=== PATIENT | female | born 1940 | race Caucasian/White ===

== ENCOUNTER 2021-08-26 07:32 | Emergency (ER) | payer MEDICARE, SELFPAY ==
--- NOTE | ~2021-08-26 | CT_ITS ---
EXAMINATION: CT abdomen pelvis w con CLINICAL INFORMATION: Reason for Exam Suprapubic abdominal pain, recurrent UTI COMPARISON: Most recent prior CT from April 2019 TECHNIQUE: Multidetector volumetric imaging was performed from the superior aspect of the liver through the pubic symphysis 85 mL Omnipaque 350 injected Sagittal and coronal reformatted images were obtained on the technologist's workstation. This CT examination was performed using dose optimization techniques as appropriate, variously including the following: *Automated exposure control *Adjustment of mA and/or kV according to patient size (this includes techniques or standardized protocols for targeted exams where dose is matched to indication/reason for exam; i.e. extremities or head) *Use of iterative reconstruction technique DLP: 1710 mGy-cm FINDINGS: LOWER THORAX: Included lung bases are clear. HEPATOBILIARY: No focal hepatic lesions. No biliary ductal dilatation. GALLBLADDER: There are multiple gallstones. SPLEEN: Spleen is normal in size. PANCREAS: Pancreas is a small atrophic. STOMACH AND GASTROINTESTINAL TRACT: Stomach is grossly unremarkable. There are scattered sigmoid diverticula, no CT evidence of diverticulitis. No CT evidence of appendicitis. ADRENALS: No adrenal nodules. KIDNEYS/URETERS: No hydronephrosis, stones or solid mass lesions. URINARY BLADDER: There is circumferential wall thickening of the urinary bladder combined with mild surrounding fat stranding although nonspecific this is concerning for cystitis. PELVIC VISCERA: Unremarkable PERITONEUM: No free air or fluid. LYMPH NODES: No lymphadenopathy. VASCULAR:Abdominal aorta normal in size, no aneurysm found. BONES, ABDOMINAL WALL AND SOFT TISSUES: There are degenerative changes of the hip joints, symphysis pubis and lumbar spine. No fracture. No destructive bone lesion. CT/CT abdomen pelvis w con IMPRESSION: 1. Circumferential wall thickening of the urinary bladder combined with mild surrounding fat stranding raise concern for cystitis. 2. Cholelithiasis. 3. Few scattered diverticula of the sigmoid colon without evidence of diverticulitis.
[2021-08-26 08:38] VITALS: BP 171/58; PULSE 84; RESP 16; TEMP 36.9; O2SAT 99; BMI 24.7
[2021-08-26 08:39] LABS: Appearance Urine CLOUDY; Color Urine STRAW; Glucose Urine UA 500 MG/DL (NEG); Leukocyte Esterase Urine 2+ (NEG); Nitrite Urine NEG (NEG); UACC Culture Trigger YES; Urine Blood 2+ (NEG); Urine Ketones 15 MG/DL (NEG); Urine Protein NEG (NEG-TRACE)
--- NOTE | 2021-08-26 08:47 | ED_ITS ---
HPI - Female Genitourinary General Chief complaint: Urogenital-Female Stated complaint: URINARY PROBLEM Time Seen by Provider: 08/26/21 08:31 Source: patient Mode of arrival: ambulatory Limitations: no limitations History of Present Illness HPI Narrative: 81 y/o female pmhx significant for recurrent UTIs, HTN and DM presents to the emergency department with urinary frequency, urgency, suprapubic pain and palpitations X2 weeks. She states that she has been getting recurring UTIs, her last UTI was about 2 weeks ago, she was recently taking ciprofloxacin for it. She states that the symptoms resolved, but started up a few days after stopping antibiotics. She reports sevree She also states that she has been wyatt ving palpitations, and chest heaviness for the past few weeks. She also notices that her blood pressures have been higher than usual, 190/80 in the morning. She denies fevers, chills, SOB, N/V/D, recent sick contacts, back pain, weakness, fatigue. MD elicited complaint: dysuria and UTI Pertinent past history: recurrent UTIs Onset (ago): week(s) (2) Severity: severe Quality of pain: other (suprapubic tenderness) Consistency: constant Vaginal discharge: none Vaginal bleeding: none Urinary symptoms: Dysuria, Urgency, Frequency and Difficulty Urinating Exacerbating factors: none Relieving factors: none Associated symptoms: abdominal pain Treatment prior to arrival: none Related Data Previous Rx's Medication Instructions Recorded cefuroxime axetil 250 mg tablet 250 mg PO BID 7 Days #14 tab 08/26/21 phenazopyridine 100 mg tablet 100 mg PO TID PRN #6 tab 08/26/21 (Pyridium) Allergies Allergy/AdvReac Type Severity Reaction Status Date / Time codeine [Codeine] Allergy Unknown UNKNOWN Unverified 08/11/20 15:06 NARCOTICS Allergy Unknown UNKNOWN Uncoded 08/11/20 15:06 Review of Systems Review of Systems: Constitutional: No Fever, No Chills ENT/Mouth: No sore throat, No Rhinorrhea, No Swallowing Difficulty Eyes: No Eye Pain, No Swelling, No Redness Cardiovascular: No Chest Pain, No SOB, No Orthopnea, No Edema Respiratory: No Cough, No Sputum, No Wheezing, No dyspnea Gastrointestinal: No Nausea, No Vomiting, No Diarrhea, + abdominal Pain, Genitourinary: + Dysuria, + Urinary Frequency, No Hematuria Musculoskeletal: No joint pain, No Myalgias Skin: No Skin Lesions, No rash Neuro: No Weakness, No Numbness, No Dizziness, No Headache [facility] Past Medical History Medical History (Updated 08/26/21 @ 12:27 by LES Cr) Diabetes Hypertension Ruptured ear drum Surgical History (Updated 08/26/21 @ 08:40 by Js Anderson) H/O: hysterectomy Social History Social History Alcohol intake: former Patient Tobacco Use Status: Never used Tobacco Use of substances other than those prescribed or required for medical reasons: No Advance Directives: Yes Advance Directives Information Provided: Yes Advance Directives on File: No Physical Exam Vital Signs: Vital Signs: Last Vital Signs Temp 98.4 F 08/26/21 08:38 Pulse 84 08/26/21 08:38 Resp 16 08/26/21 08:38 BP 171/58 H 08/26/21 08:38 Pulse Ox 99 08/26/21 08:38 Body Mass Index 24.7 Appearance: Alert. Oriented X3. No acute distress. Eyes: Pupils equal, round and reactive to light. ENT: Pharynx normal. Neck: Normal inspection. Neck supple. CVS: Normal heart rate and rhythm. Pulses normal. Respiratory: No respiratory distress. Breath sounds normal. Abdomen: Soft and + tenderness to suprapubic region. +BS x4 Skin: Skin warm and dry. Normal skin color. Normal skin turgor. No rashes. Extremities: No lower extremity edema. Neuro: Oriented X 3. No motor deficit. No sensory deficit. Course Course Course Narrative: Patient states she feels better at this time. CT shows cystitis. Labs show an elevated white blood cell count. Likely secondary to UTI. Patient be discharged on Ceftin, and pyridium. She has also been advised to follow up of Dr. Pendleton, urology due to frequency of her urinary tract infections MDM - Female Genitourinary MDM Narrative Medical decision making narrative: 81-year-old female past medical history significant for recurrent UTIs, DM and HTN presents to the emergency department with dysuria, urinary frequency, urgency, abdominal discomfort and palpitations X 2 weeks. She recently completed a course of Cipro, for UTIs. She also notes that her blood pressures have been higher than usual, and she has been experiencing palpitations and chest heaviness. Upon physical examination as tenderness to palpation in the suprapubic region. The staff of patient's symptoms, and physical exam findings, this is likely a urinary tract infection. However an EKG and basic labs will be done to further evaluate the palpitations. Lab Data Result diagrams: 08/26/21 09:20 08/26/21 09:20 Labs: Lab Results 08/26/21 08/26/21 08/26/21 Range/Units 08:31 09:05 09:20 WBC (4.8-10.8) X10*3/uL RBC (4.20-5.50) X10*6/uL Hgb (12.0-16.0) g/dl Hct (37-47) % MCV (80-98) fL MCH (27.0-33.0) pg MCHC (31.0-35.0) g/dl RDW (11.0-16.0) % Plt Count (160-400) X10*3/uL MPV (9.4-12.3) fL Immature Gran % (Auto) (0.0-0.4) % Neut % (Auto) (45-73) % Lymph % (Auto) (20-40) % [place] % (Auto) (2-11) % Eos % (Auto) (0-4) % Baso % (Auto) (0-2) % Lymph # (Auto) (1.2-4.9) X10*3/uL [place] # (Auto) (0.1-1.2) X10*3/uL Eos # (Auto) (0.0-0.4) X10*3/uL Baso # (Auto) (0.0-0.2) X10*3/uL Abs Immat Gran (auto) (0.00-0.03) X10*3/uL Absolute Neuts (auto) (2.0-8.3) X10*3/uL Absolute Nucleated RBC (0.0-0.012) X10*3/uL Nucleated RBC % (auto) (0.0-0.2) /100WBC Sodium (135-145) mmol/L Potassium (3.3-5.1) mmol/L Chloride (96-108) mmol/L Carbon Dioxide (22-29) mmol/L Anion Gap (12-20) BUN (9-16) mg/dL Creatinine (0.5-1.4) mg/dL Estim Creat Clear Calc Estimated GFR POC Glucose 245 H (60-115) mg/dL Random Glucose (60-115) mg/dL Calcium (8.4-10.2) mg/dL Magnesium (1.6-2.6) mg/dL Total Bilirubin (0.0-1.0) mg/dL Direct Bilirubin (0.0-0.5) mg/dL AST (5-31) U/L ALT (0-31) U/L Alkaline Phosphatase (39-117) U/L Troponin I High Sens 4.2 (<3.5-17.0) ng/L Total Protein (6.5-8.0) g/dL Albumin (3.5-5.0) g/dL Urine Color STRAW Urine Appearance CLOUDY Urine pH 6.0 (5.0-8.0) Ur Specific [place] 1.010 (1.005-1.025) Urine Protein NEG (NEG-TRACE) MG/DL Urine Glucose (UA) 500 H (NEG) MG/DL Urine Ketones 15 (NEG) MG/DL Urine Blood 2+ H (NEG) Urine Nitrite NEG (NEG) Ur Leukocyte Esterase 2+ H (NEG) Urine RBC 1-4 (0) /HPF Urine WBC 50-75 H (0-4) /HPF Ur Squamous Epith Cells TRACE /LPF Urine Bacteria TRACE /LPF COVID-19 (MARTHA) (Negative) COVID-19 Clin Com 08/26/21 08/26/21 08/26/21 Range/Units 09:20 09:20 09:20 WBC 11.8 H (4.8-10.8) X10*3/uL RBC 3.85 L (4.20-5.50) X10*6/uL Hgb 11.2 L (12.0-16.0) g/dl Hct 33.4 L (37-47) % MCV 86.8 (80-98) fL MCH 29.1 (27.0-33.0) pg MCHC 33.5 (31.0-35.0) g/dl RDW 13.6 (11.0-16.0) % Plt Count 277 (160-400) X10*3/uL MPV 9.0 L (9.4-12.3) fL Immature Gran % (Auto) 0.3 (0.0-0.4) % Neut % (Auto) 83.7 H (45-73) % Lymph % (Auto) 12.0 L (20-40) % [place] % (Auto) 3.3 (2-11) % Eos % (Auto) 0.4 (0-4) % Baso % (Auto) 0.3 (0-2) % Lymph # (Auto) 1.4 (1.2-4.9) X10*3/uL [place] # (Auto) 0.4 (0.1-1.2) X10*3/uL Eos # (Auto) 0.1 (0.0-0.4) X10*3/uL Baso # (Auto) 0.0 (0.0-0.2) X10*3/uL Abs Immat Gran (auto) 0.03 (0.00-0.03) X10*3/uL Absolute Neuts (auto) 9.9 H (2.0-8.3) X10*3/uL Absolute Nucleated RBC 0.000 (0.0-0.012) X10*3/uL Nucleated RBC % (auto) 0.0 (0.0-0.2) /100WBC Sodium 136 (135-145) mmol/L Potassium 4.4 (3.3-5.1) mmol/L Chloride 102 (96-108) mmol/L Carbon Dioxide 23 (22-29) mmol/L Anion Gap 15 (12-20) BUN 15 (9-16) mg/dL Creatinine 0.89 (0.5-1.4) mg/dL Estim Creat Clear Calc 43.7 Estimated GFR > 60 POC Glucose (60-115) mg/dL Random Glucose 273 H (60-115) mg/dL Calcium 9.6 (8.4-10.2) mg/dL Magnesium 1.7 (1.6-2.6) mg/dL Total Bilirubin 0.5 (0.0-1.0) mg/dL Direct Bilirubin 0.2 (0.0-0.5) mg/dL AST 14 (5-31) U/L ALT 12 (0-31) U/L Alkaline Phosphatase 75 (39-117) U/L Troponin I High Sens (<3.5-17.0) ng/L Total Protein 7.4 (6.5-8.0) g/dL Albumin 4.2 (3.5-5.0) g/dL Urine Color Urine Appearance Urine pH (5.0-8.0) Ur Specific Logan (1.005-1.025) Urine Protein (NEG-TRACE) MG/DL Urine Glucose (UA) (NEG) MG/DL Urine Ketones (NEG) MG/DL Urine Blood (NEG) Urine Nitrite (NEG) Ur Leukocyte Esterase (NEG) Urine RBC (0) /HPF Urine WBC (0-4) /HPF Ur Squamous Epith Cells /LPF Urine Bacteria /LPF COVID-19 (MARTHA) Negative (Negative) COVID-19 Clin Com See Note ECG Data Attestation: I personally reviewed and interpreted this ECG as follows: ECG interpretation date: 08/26/21 Prior ECG tracings: available for review Interpretation: normal sinus rhythm, HR 80 bpm, normal MI interval, normal QTc, no ST segment elevations or depressions Critical Care Time Critical Care Time Critical Care Time: No Discharge Plan Discharge Clinical Impression: Cystitis Urinary tract infection Qualifiers: Urinary tract infection type: site unspecified Hematuria presence: without darwin turia Qualified Code(s): N39.0 - Urinary tract infection, site not specified Hypertension Qualifiers: Hypertension type: unspecified Qualified Code(s): I10 - Essential (primary) hypertension Patient Disposition: Home, Self-Care Instructions: Urinary Tract Infection in Women (ED) Additional Instructions: Follow up with your PCP in two days Pyridium a medication that you were given may make your urine dark, orange/yellow this is normal. Take your antibiotics as prescribed Drink plenty of fluids. Follow up with urology Return to the emergency department with new or worsening symptoms Prescriptions: New cefuroxime axetil 250 mg tablet 250 mg PO BID 7 Days Qty: 14 RF: 0 phenazopyridine [Pyridium] 100 mg tablet 100 mg PO TID PRN (Reason: pain) Qty: 6 RF: 0 Referrals: David Pendleton MD [Physician] - 2 days Myke Urbina MD [Primary Care Provider] - 2 days Interventions: ED Discharge Assessment Last Done: 08/26/21 12:43 Discharge Date/Time: 08/26/21 12:43
[2021-08-26 08:53] LABS: Bacteria Urine TRACE /LPF; Squamous Epithelial Cell Urine TRACE /LPF; WBC Urine 50-75 /HPF (0-4)
--- NOTE | 2021-08-26 09:01 | ECG_ITS ---
Test Reason : ABDOMINAL PAIN Blood Pressure : / mmHG Vent. Rate : 080 BPM Atrial Rate : 080 BPM P-R Int : 186 ms QRS Dur : 080 ms QT Int : 388 ms P-R-T Axes : 046 -07 033 degrees QTc Int : 447 ms Normal sinus rhythm Normal ECG When compared with ECG of 19-JAN-2020 14:57, No significant change was found Referred By: Bere Trejo Electronically Signed By:FLY GARZA
[2021-08-26 09:09] LABS: Glucose, Whole Blood 245 mg/dL (60-115)
[2021-08-26 09:26] LABS: MANUAL DIFF FLAG NO
[2021-08-26 09:29] LABS: Basophils Percent Auto 0.3 % (0-2); Eosinophils Absolute Auto 0.1 X10*3/uL (0.0-0.4); Eosinophils Percent Auto 0.4 % (0-4); Hematocrit 33.4 % (37-47); Hemoglobin 11.2 g/dl (12.0-16.0); Imm Gran Abs Auto 0.03 X10*3/uL (0.00-0.03); Imm Gran Pct Auto 0.3 % (0.0-0.4); Lymphocytes Absolute Auto 1.4 X10*3/uL (1.2-4.9); Mean Corpuscular HGB Conc 33.5 g/dl (31.0-35.0); Mean Corpuscular Hemoglobin 29.1 pg (27.0-33.0); Mean Corpuscular Volume 86.8 fL (80-98); Monocytes Absolute Auto 0.4 X10*3/uL (0.1-1.2); Monocytes Percent Auto 3.3 % (2-11); Neutrophils Absolute Auto 9.9 X10*3/uL (2.0-8.3); Neutrophils Percent Auto 83.7 % (45-73); Platelet Count 277 X10*3/uL (160-400); Red Blood Count 3.85 X10*6/uL (4.20-5.50); Red Cell Distribution Width 13.6 % (11.0-16.0); White Blood Count 11.8 X10*3/uL (4.8-10.8)
[2021-08-26 09:47] LABS: COVID-19 Test Negative (Negative)
[2021-08-26 09:54] LABS: Alanine Aminotransferase 12 U/L (0-31); Albumin Level 4.2 g/dL (3.5-5.0); Alkaline Phosphatase 75 U/L (39-117); Anion Gap 15 (12-20); Aspartate Amino Transferase 14 U/L (5-31); Bilirubin Direct 0.2 mg/dL (0.0-0.5); Bilirubin Total 0.5 mg/dL (0.0-1.0); Blood Urea Nitrogen 15 mg/dL (9-16); Calcium 9.6 mg/dL (8.4-10.2); Carbon Dioxide 23 mmol/L (22-29); Chloride 102 mmol/L (96-108); Creatinine Clr Calc Pharmacy 43.7; Estimated Glomerular Filt Rate > 60; Glucose Random 273 mg/dL (60-115); Magnesium 1.7 mg/dL (1.6-2.6); Potassium 4.4 mmol/L (3.3-5.1); Sodium 136 mmol/L (135-145); Total Protein 7.4 g/dL (6.5-8.0)
[2021-08-26 09:59] LABS: Troponin-I High Sensitivity 4.2 ng/L (<3.5-17.0)
[2021-08-26] MEDS: Phenazopyridine HCL 100 MG TABLET PO (11:30)
[2021-08-26] MEDS: iohexoL 350 MG/ML 100 ML INFUS..BTL IV (11:32)
== END 2021-08-26 12:43 | disposition home or self-care (01) ==
PROVIDERS: Physician Assistant; Emergency Provider Emergency Medicine; PCP Internal Medicine
DX: N39.0 Urinary tract infection, site not specified (principal); R30.0 Dysuria; R35.0 Frequency of micturition; I10 Essential (primary) hypertension; Z20.822 Contact with and (suspected) exposure to COVID-19; Z79.899 Other long term (current) drug therapy
CPT/HCPCS: 36415; 74177; 80048; 80076; 81001; 82947; 83735; 84484; 85025; 87086; 87635; 93005; 99284; 99285; Q9967

== ENCOUNTER → 2021-09-19 11:46 | Outpatient (BNVA) | payer MEDICARE, SELFPAY | PROVIDERS: PCP Internal Medicine | DX: N30.90 Cystitis, unspecified without hematuria (principal); D72.829 Elevated white blood cell count, unspecified; E11.9 Type 2 diabetes mellitus without complications; I10 Essential (primary) hypertension; Z88.6 Allergy status to analgesic agent; Z88.5 Allergy status to narcotic agent | CPT/HCPCS: 99202 ==

== ENCOUNTER 2021-10-09 02:26 | Emergency (ER) | payer MEDICARE, SELFPAY ==
--- NOTE | 2021-10-09 | ECG_ITS ---
Test Reason : ABD PAIN Blood Pressure : / mmHG Vent. Rate : 069 BPM Atrial Rate : 069 BPM P-R Int : 178 ms QRS Dur : 078 ms QT Int : 402 ms P-R-T Axes : 059 -04 024 degrees QTc Int : 430 ms Normal sinus rhythm Nonspecific ST abnormality Abnormal ECG When compared with ECG of 26-AUG-2021 09:17, ST more depressed Lateral leads Referred By: Verena Stokes Electronically Signed By:EUN MERCADO MD
--- NOTE | ~2021-10-09 | CT_ITS ---
EXAMINATION: CT ABDOMEN AND PELVIS WITH CONTRAST CLINICAL INFORMATION: Right lower quadrant/flank pain. COMPARISON: 08/26/2021 TECHNIQUE: Multidetector volumetric images were obtained from the superior aspect of the liver through the pubic symphysis following administration 85 mL of Omnipaque 350 intravenous contrast. Sagittal and coronal reformatted images were obtained on the technologist's workstation. Oral contrast: No This CT examination was performed using dose optimization techniques as appropriate, variously including the following: *Automated exposure control *Adjustment of mA and/or kV according to patient size (this includes techniques or standardized protocols for targeted exams where dose is matched to indication/reason for exam; i.e. extremities or head) *Use of iterative reconstruction technique DLP: 555 mGy-cm FINDINGS: LUNG BASES: Minimal basilar atelectasis. Coronary artery calcifications. LIVER, GALLBLADDER, AND BILIARY TREE: The liver is normal in size, shape, and attenuation. No focal hepatic lesion or biliary ductal dilatation is present. Small stones in the gallbladder lumen. This includes a stone in the neck. No wall thickening or pericholecystic fluid. PANCREAS: Unremarkable. SPLEEN: Unremarkable. ADRENAL GLANDS: Unremarkable. KIDNEYS AND URETERS: The kidneys are normal in size, shape, and attenuation. No hydronephrosis, hydroureter, or calculi seen. No perinephric stranding. BLADDER: Distended bladder without wall thickening. GASTROINTESTINAL TRACT: The stomach is unremarkable. Normal caliber small bowel. No obstruction. No colonic wall thickening or acute inflammation. There is diverticulosis scattered without diverticulitis. Moderate colonic stool burden. Normal appendix. No free air or free fluid. ABDOMINAL WALL: No significant hernia is appreciated. LYMPH NODES: Normal. VASCULAR: Normal caliber aorta with mild atherosclerotic calcification. PELVIC VISCERA: The uterus is not seen. No adnexal mass. OSSEOUS STRUCTURES: No acute or suspicious osseous abnormality. Moderate degenerative change throughout the spine with diffuse disc space narrowing and vacuum disc phenomenon. CT/CT abdomen pelvis w con IMPRESSION: No acute inflammatory changes of the abdomen or pelvis. Cholelithiasis without findings of acute cholecystitis. Normal appendix. No hydronephrosis or nephrolithiasis. Moderate colonic stool burden.
[2021-10-09 02:27] VITALS: BP 230/121; PULSE 87; RESP 16; TEMP 36.7; O2SAT 99; BMI 24.7
[2021-10-09 03:00] VITALS: BP 207/80; PULSE 73; RESP 16; O2SAT 99
--- NOTE | 2021-10-09 03:01 | ED.ABDPAIN ---
HPI - Abdominal Pain General Chief Complaint: Abdominal Pain Stated Complaint: Abdominal pain Time Seen by Provider: 10/09/21 02:54 Source: patient Mode of arrival: ambulatory History of Present Illness HPI narrative: 81-year-old female who presents with 3 days of worsening right flank/right lower quadrant pain and associated nausea but denies any fever, chills, shortness of breath, chest pain/palpitations and states that she has recently been treated for a UTI and denies any associated burning/pain. Patient states that the pain on the right side radiates into her back. She does have a positive surgical history and states that she has been unable to pass gas and has felt like she is constipated. Related Data Home Medications Medication Instructions Recorded Confirmed blood sugar diagnostic (OneTouch #10 ea 09/19/21 Verio test strips) diltiazem HCl 120 mg 120 mg PO DAILY 09/19/21 capsule,extended release 24 hr glimepiride 4 mg tablet 4 mg PO BID 09/19/21 lisinopril 40 mg tablet 40 mg PO DAILY 09/19/21 metformin 1,000 mg tablet 1,000 mg PO BID 09/19/21 Previous Rx's Medication Instructions Recorded cefuroxime axetil 250 mg tablet 250 mg PO BID 7 Days #14 tab 08/26/21 phenazopyridine 100 mg tablet 100 mg PO TID PRN #6 tab 08/26/21 (Pyridium) ciprofloxacin HCl 500 mg tablet 500 mg PO DAILY 10 Days #10 tab 09/19/21 (Cipro) nitrofurantoin macrocrystal 100 mg 100 mg PO BID 7 Days #14 cap 09/29/21 capsule Allergies Allergy/AdvReac Type Severity Reaction Status Date / Time codeine [Codeine] Allergy Unknown UNKNOWN Verified 10/09/21 03:01 NARCOTICS Allergy Unknown UNKNOWN Uncoded 10/09/21 03:01 Review of Systems Review of Systems Pertinent positives and negatives as stated in HPI 10 point review of systems is otherwise negative. Physical Exam Vital Signs: Vital Signs: Last Vital Signs Temp 98.0 F 10/09/21 02:27 Pulse 65 10/09/21 05:33 Resp 12 10/09/21 05:33 BP 186/82 H 10/09/21 05:33 Pulse Ox 99 10/09/21 05:33 Body Mass Index 24.7 VITAL SIGNS: Reviewed. GENERAL: Well developed, well nourished, in no acute distress. HEAD: Normocephalic/atraumatic EYES: PERRLA, EOMI OROPHARYNX: no oral lesions noted, posterior pharynx clear, dry mucosa NECK: Supple, no adenopathy LUNGS: Normal breath sounds. No adventitious sounds or accessory muscle use. SpO2<99> CARDIOVASCULAR: Regular rate and rhythm without noted murmurs, no JVD or lower extremity edema. ABDOMEN: Soft, right lower quadrant pain, non-distended with bowel sounds. MUSCULOSKELETAL: No tenderness, deformities, or effusions noted on gross inspection. EXTREMITIES: No cyanosis, clubbing or edema. SKIN: Inspection of the skin reveals no rashes NEUROLOGIC: Alert and oriented x 4. Strength and sensation to light touch were grossly intact x 4. Course Course Course Narrative: 81-year-old female with history and clinical presentation suggestive of possible diverticulitis, renal colic, appendicitis, SBO. Review of all investigations negative for acute findings other than heavy stool burden. All results and findings were discussed with the patient at bedside. She was otherwise discharged in stable condition with instructions to follow-up with her primary care provider. MDM - Abdominal Pain Lab Data Result diagrams: 10/09/21 03:02 10/09/21 03:02 Labs: Lab Results 10/09/21 10/09/21 10/09/21 Range/Units 03:02 03:02 03:02 WBC 6.7 (4.8-10.8) X10*3/uL RBC 4.47 (4.20-5.50) X10*6/uL Hgb 12.8 (12.0-16.0) g/dl Hct 39.3 (37.0-47.0) % MCV 87.9 (80.0-98.0) fL MCH 28.6 (27.0-33.0) pg MCHC 32.6 (31.0-35.0) g/dl RDW 13.3 (11.0-16.0) % Plt Count 327 (160-400) X10*3/uL MPV 9.1 L (9.4-12.3) fL Immature Gran % (Auto) 0.3 (0.0-0.4) % Neut % (Auto) 42.6 L (45-73) % Lymph % (Auto) 47.1 H (20-40) % [place] % (Auto) 7.2 (2-11) % Eos % (Auto) 2.1 (0-4) % Baso % (Auto) 0.7 (0-2) % Lymph # (Auto) 3.1 (1.2-4.9) X10*3/uL [place] # (Auto) 0.5 (0.1-1.2) X10*3/uL Eos # (Auto) 0.1 (0.0-0.4) X10*3/uL Baso # (Auto) 0.1 (0.0-0.2) X10*3/uL Abs Immat Gran (auto) 0.02 (0.00-0.03) X10*3/uL Absolute Neuts (auto) 2.8 (2.0-8.3) x10*3/uL Absolute Nucleated RBC 0.000 (0.0-0.012) X10*3/uL Nucleated RBC % (auto) 0.0 (0.0-0.2) /100WBC PT 10.5 (9.9-13.0) SEC INR 0.9 (0.9-1.1) Sodium 137 (135-145) mmol/L Potassium 4.0 (3.3-5.1) mmol/L Chloride 101 (96-108) mmol/L Carbon Dioxide 22 (22-29) mmol/L Anion Gap 18 (12-20) BUN 11 (9-16) mg/dL Creatinine 0.85 (0.5-1.4) mg/dL Estim Creat Clear Calc 45.7 Estimated GFR > 60 Random Glucose 179 H (60-115) mg/dL Lactic Acid (0.5-2.0) mmol/L Calcium 10.1 (8.4-10.2) mg/dL Total Bilirubin 0.7 (0.0-1.0) mg/dL AST 15 (5-31) U/L ALT 15 (0-31) U/L Alkaline Phosphatase 82 (39-117) U/L Total Protein 8.6 H (6.5-8.0) g/dL Albumin 4.7 (3.5-5.0) g/dL Lipase 24 (8-78) U/L Urine Color Urine Appearance Urine pH (5.0-8.0) Ur Specific [place] (1.005-1.025) Urine Protein (NEG-TRACE) MG/DL Urine Glucose (UA) (NEG) MG/DL Urine Ketones (NEG) MG/DL Urine Blood (NEG) Urine Nitrite (NEG) Ur Leukocyte Esterase (NEG) COVID-19 (MARTHA) (Negative) COVID-19 Clin Com 10/09/21 10/09/21 10/09/21 Range/Units 03:02 03:23 03:23 WBC (4.8-10.8) X10*3/uL RBC (4.20-5.50) X10*6/uL Hgb (12.0-16.0) g/dl Hct (37.0-47.0) % MCV (80.0-98.0) fL MCH (27.0-33.0) pg MCHC (31.0-35.0) g/dl RDW (11.0-16.0) % Plt Count (160-400) X10*3/uL MPV (9.4-12.3) fL Immature Gran % (Auto) (0.0-0.4) % Neut % (Auto) (45-73) % Lymph % (Auto) (20-40) % [place] % (Auto) (2-11) % Eos % (Auto) (0-4) % Baso % (Auto) (0-2) % Lymph # (Auto) (1.2-4.9) X10*3/uL [place] # (Auto) (0.1-1.2) X10*3/uL Eos # (Auto) (0.0-0.4) X10*3/uL Baso # (Auto) (0.0-0.2) X10*3/uL Abs Immat Gran (auto) (0.00-0.03) X10*3/uL Absolute Neuts (auto) (2.0-8.3) x10*3/uL Absolute Nucleated RBC (0.0-0.012) X10*3/uL Nucleated RBC % (auto) (0.0-0.2) /100WBC PT (9.9-13.0) SEC INR (0.9-1.1) Sodium (135-145) mmol/L Potassium (3.3-5.1) mmol/L Chloride (96-108) mmol/L Carbon Dioxide (22-29) mmol/L Anion Gap (12-20) BUN (9-16) mg/dL Creatinine (0.5-1.4) mg/dL Estim Creat Clear Calc Estimated GFR Random Glucose (60-115) mg/dL Lactic Acid 1.6 (0.5-2.0) mmol/L Calcium (8.4-10.2) mg/dL Total Bilirubin (0.0-1.0) mg/dL AST (5-31) U/L ALT (0-31) U/L Alkaline Phosphatase (39-117) U/L Total Protein (6.5-8.0) g/dL Albumin (3.5-5.0) g/dL Lipase (8-78) U/L Urine Color STRAW Urine Appearance CLEAR Urine pH 6.5 (5.0-8.0) Ur Specific [place] <= 1.005 (1.005-1.025) Urine Protein NEG (NEG-TRACE) MG/DL Urine Glucose (UA) NEG (NEG) MG/DL Urine Ketones NEG (NEG) MG/DL Urine Blood NEG (NEG) Urine Nitrite NEG (NEG) Ur Leukocyte Esterase NEG (NEG) COVID-19 (MARTHA) Negative (Negative) COVID-19 Clin Com See Note ECG Data Attestation: I personally reviewed and interpreted this ECG as follows: Prior ECG tracings: available for review (08/26/2021 no acute changes on comparison) Interpretation: Normal sinus rhythm, HR-69, no STEMI, SC/QRS/QTC are within normal limits. Discharge Plan Discharge Clinical Impression: Constipation Patient Disposition: Home, Self-Care Instructions: Constipation (ED), Fleet Enema (ED), High Fiber Diet (ED) Additional Instructions: 1. Resume all home medications. Please take your blood pressure medication as soon as you get home. 2. Increase your water intake as well as fresh fruits and vegetables. Recommend also trying [id number]-syzoavx MiraLax, once a day, until you are having regular soft stools. Stop taking this medication if you develop diarrhea. 3. Follow-up with your primary care provider in the next 2-3 days for re-evaluation and further outpatient management. Return to the ER for acute worsening of symptoms Prescriptions: No Action nitrofurantoin macrocrystal 100 mg capsule 100 mg PO BID 7 Days Qty: 14 RF: 0 cefuroxime axetil 250 mg tablet 250 mg PO BID 7 Days Qty: 14 RF: 0 phenazopyridine [Pyridium] 100 mg tablet 100 mg PO TID PRN (Reason: pain) Qty: 6 RF: 0 ciprofloxacin HCl [Cipro] 500 mg tablet 500 mg PO DAILY 10 Days Qty: 10 RF: 0 Referrals: Myke Urbina MD [Primary Care Provider] - 2 days [facility] Past Medical History Source: nursing notes reviewed Medical History Diabetes Frequent UTI Hypertension Ruptured ear drum Surgical History H/O: hysterectomy Social History Social History Alcohol intake: former Patient Tobacco Use Status: Never used Tobacco Advance Directives: No
--- NOTE | 2021-10-09 03:12 | PC.NURSE ---
IV inserted. Labs, cultures, EKG, and urine obtained. PT medicated per MAR for pain.
[2021-10-09 03:14] LABS: MANUAL DIFF FLAG NO
[2021-10-09 03:17] LABS: Basophils Absolute Auto 0.1 X10*3/uL (0.0-0.2); Basophils Percent Auto 0.7 % (0-2); Eosinophils Absolute Auto 0.1 X10*3/uL (0.0-0.4); Eosinophils Percent Auto 2.1 % (0-4); Hematocrit 39.3 % (37.0-47.0); Hemoglobin 12.8 g/dl (12.0-16.0); Imm Gran Abs Auto 0.02 X10*3/uL (0.00-0.03); Imm Gran Pct Auto 0.3 % (0.0-0.4); Lymphocytes Absolute Auto 3.1 X10*3/uL (1.2-4.9); Lymphocytes Percent Auto 47.1 % (20-40); Mean Corpuscular HGB Conc 32.6 g/dl (31.0-35.0); Mean Corpuscular Hemoglobin 28.6 pg (27.0-33.0); Mean Corpuscular Volume 87.9 fL (80.0-98.0); Mean Platelet Volume 9.1 fL (9.4-12.3); Monocytes Absolute Auto 0.5 X10*3/uL (0.1-1.2); Monocytes Percent Auto 7.2 % (2-11); Neutrophils Absolute Auto 2.8 x10*3/uL (2.0-8.3); Neutrophils Percent Auto 42.6 % (45-73); Platelet Count 327 X10*3/uL (160-400); Red Blood Count 4.47 X10*6/uL (4.20-5.50); Red Cell Distribution Width 13.3 % (11.0-16.0); White Blood Count 6.7 X10*3/uL (4.8-10.8)
[2021-10-09 03:26] LABS: INTERNATIONAL NORM RATIO 0.9 (0.9-1.1); Prothrombin Time 10.5 SEC (9.9-13.0)
[2021-10-09 03:34] LABS: Lactic Acid 1.6 mmol/L (0.5-2.0)
[2021-10-09 03:37] LABS: Alanine Aminotransferase 15 U/L (0-31); Albumin Level 4.7 g/dL (3.5-5.0); Alkaline Phosphatase 82 U/L (39-117); Anion Gap 18 (12-20); Aspartate Amino Transferase 15 U/L (5-31); Bilirubin Total 0.7 mg/dL (0.0-1.0); Blood Urea Nitrogen 11 mg/dL (9-16); Calcium 10.1 mg/dL (8.4-10.2); Carbon Dioxide 22 mmol/L (22-29); Chloride 101 mmol/L (96-108); Creatinine Clr Calc Pharmacy 45.7; Estimated Glomerular Filt Rate > 60; Glucose Random 179 mg/dL (60-115); Lipase 24 U/L (8-78); Sodium 137 mmol/L (135-145); Total Protein 8.6 g/dL (6.5-8.0)
[2021-10-09 03:41] LABS: Appearance Urine CLEAR; Color Urine STRAW; Glucose Urine UA NEG (NEG); Leukocyte Esterase Urine NEG (NEG); Nitrite Urine NEG (NEG); PH 6.5 (5.0-8.0); Specific Gravity - Urine <= 1.005 (1.005-1.025); Urine Blood NEG (NEG); Urine Ketones NEG (NEG); Urine Protein NEG (NEG-TRACE)
[2021-10-09] MEDS: Ketorolac Tromethamine 15 MG/ML VIAL IVPUSH (03:41)
[2021-10-09] MEDS: Acetaminophen 325 MG TABLET 975 MG PO (03:42)
[2021-10-09 03:53] LABS: COVID-19 Test Negative (Negative)
[2021-10-09 04:08] VITALS: BP 167/74; PULSE 62; RESP 18; O2SAT 98
[2021-10-09] MEDS: iohexoL 350 MG/ML 100 ML INFUS..BTL 85 ML IV (04:46)
[2021-10-09 05:33] VITALS: BP 186/82; PULSE 65; RESP 12; O2SAT 99
== END 2021-10-09 06:08 | disposition home or self-care (01) ==
PROVIDERS: Emergency Provider Student in an Organized Health Care Education/Training Program; PCP Internal Medicine
DX: K59.00 Constipation, unspecified (principal); E11.9 Type 2 diabetes mellitus without complications; I10 Essential (primary) hypertension; Z20.822 Contact with and (suspected) exposure to COVID-19
CPT/HCPCS: 36415; 74177; 80053; 81003; 83605; 83690; 85025; 85610; 87040; 87635; 93005; 96374; 96375; 99284; J1885; J3010; Q9967

== ENCOUNTER → 2021-10-23 12:56 | Outpatient (BNVA) | payer MEDICARE, SELFPAY | PROVIDERS: PCP Internal Medicine | DX: N39.0 Urinary tract infection, site not specified (principal) | CPT/HCPCS: Q3014 ==

== ENCOUNTER → 2022-04-20 09:23 | Outpatient (BNVA) | payer MEDICARE, SELFPAY | PROVIDERS: PCP Internal Medicine | DX: N39.0 Urinary tract infection, site not specified (principal) | CPT/HCPCS: Q3014 ==

== ENCOUNTER 2025-05-25 09:18 | Outpatient (AMB) | payer MEDICARE, SELFPAY ==
[2025-05-25 09:30] VITALS: BP 187/81; PULSE 86; RESP 14; TEMP 36.4; O2SAT 99; BMI 27.2
--- NOTE | 2025-05-25 09:30 | A.OFFPC_ITS ---
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 Accompanied by: Spouse Allergies codeine (Codeine) Allergy (Unknown, Verified 05/25/25 10:02) UNKNOWN NARCOTICS Allergy (Unknown, Uncoded 05/25/25 10:02) UNKNOWN Medication List - Last Reconciled 05/25/25 by Hung Gimenez MD aspirin 81 mg PO DAILY blood sugar diagnostic ([employer] Ver[employer] test strips) As directed diltiazem HCl CD 120 mg PO DAILY glimepiride 4 mg PO BID lisinopril 40 mg PO DAILY metformin 1,000 mg PO BID Tobacco use date assessed: 05/25/25 Fall risk assessment: No Falls in past year Last assessed Fall Risk: 05/25/25 Dental Screening Dental Screen Date: 05/25/25 Did you have a dental visit in the last 12 months?: Yes Did you have a dental problem in the last 6 months where you did not have access to dental care?: No Was dental information given to patient?: Patient has dentist [facility] Medical History (Updated 05/25/25 @ 10:04 by Hung Gimenez MD) Decreased hearing of both ears Frequent UTI Ruptured ear drum Hypertension Diabetes Surgical History History of colonoscopy (~12/31/13) H/O: hysterectomy Family History Mother Uterine cancer Father Cancer Social History Housing: House Alcohol intake: current Alcohol intake frequency: does not drink Patient Tobacco Use Status: Never used Tobacco service: No Current occupational status: retired Cognitive needs: No Hearing needs: Yes (right ear hearing aid) Vision needs: Yes (rx glasses) Questionnaire PHQ-9 Over the last 2 weeks, how often have you been bothered by any of the following problems? 1. Little interest or pleasure in doing things: not at all 2. Feeling down, depressed, or hopeless: not at all 3. Trouble falling or staying asleep, or sleeping too much: not at all 4. Feeling tired or having little energy: not at all 5. Poor appetite or overeating: not at all 6. Feeling bad about yourself - or that you are a failure or have let yourself or your family down: not at all 7. Trouble concentrating on things, such as reading the newspaper or watching television: not at all 8. Moving or speaking so slowly that other people could have noticed. Or the opposite - being so fidgety or restless that you have been moving around a lot more than usual: not at all 9. Thoughts that you would be better off or of hurting yourself in some way: not at all Total score: 0 Source: Developed by Drs. Say Fernandez, Martina Velez, Chi Lorenzo and colleagues, with an educational emely from [employer]. Thrive Questionnaire Date Thrive assessed: 05/25/25 I am a: Patient What is your living situation today?: I have a steady place to live Within the past 12 months, did the food you bought not last and you didn't have the money to get more?: Never true Within the past 12 months, did you worry whether your food would run out before you got money to buy more?: Never true Do you have trouble paying for medicines?: No Do you have trouble getting transportation to medical appointments?: No Do you have trouble paying your heating and electricity bill?: No Do you have trouble taking care of your child, family member or friend?: No Do you have trouble with day-to-day activities such as bathing, preparing meals, shopping, managing finances, etc.?: No Are you currently unemployed and looking for a job?: No Are you interested in more education?: No Please select the resources that you would like help with: None THRIVE Score: 0 AUDIT C Alcohol Use Questionnaire (AUDIT-C) 1. How often do you have a drink containing alcohol?: Never 3. How often do you have six or more drinks on one occasion?: Never Total Score: 0 GRADY-7 AMB Questionnaire GRADY-7 Date GRADY - 7 assessed: 05/25/25 Feeling nervous, anxious, or on edge: 0 = Not at all Not being able to stop or control worryin = Not at all Worrying too much about different things: 0 = Not at all Trouble relaxin = Not at all Being so restless that it is hard to sit still: 0 = Not at all Becoming easily annoyed or irritable: 0 = Not at all Feeling afraid as if something awful might happen: 0 = Not at all Total GRADY-7 score (0-4 normal; 5-9 mild; 10-14 moderate; 15-21 severe): 0 Source: Developed by Drs. Say Fernandez, Martina Velez, Chi Lorenzo and colleagues, with an educational emely from [employer]. Physical exam (Primary Care) Vital Signs: Last Vital Signs Temp 97.6 F 05/25/25 09:30 Pulse 86 05/25/25 09:30 Resp 14 05/25/25 09:30 BP 187/81 H 05/25/25 09:30 Pulse Ox 99 05/25/25 09:30 Oxygen Delivery Method Room Air 05/25/25 09:30 BMI result Body Mass Index 27.2 Tobacco/Smoking Status: Tobacco use Status Tobacco use date assessed 05/25/25 05/25/25 09:38 Patient Tobacco Use Status Never used Tobacco 05/25/25 09:38 PHQ-9: PHQ-9 Score PHQ-9: Total score 0 05/25/25 09:38 Thrive Assessment: Date of Thrive Assessment Date Thrive assessed 05/25/25 05/25/25 09:38 Advance Care Planning discussion: Exists, not on file Date of discussion: 05/25/25 Forms completed: Health Care Proxy and MOLST Time spent: 1-15 minutes, not on file Actual minutes spent: 5 Coding Level of Care Code New Pt Level 4 (99079) Complex EM visit Add On G2211 Diagnoses Decreased hearing of both ears H91.93 Hypertension I10 Diabetes E11.9 Additional Codes Vital Signs *Quality* - Advance Care Planning discussion: Exists, not on file ([id number]) Vital Signs *Quality* - Time spent: 1-15 minutes, not on file ([id number]) Assessment & Plan Assessment & Plan (1) Decreased hearing of both ears: Code(s): H91.93 - Unspecified hearing loss, bilateral Category: Medical Plan: Patient has an appt with the last puller at [facility]. Encouraged her to keep the appt (2) Hypertension: Code(s): I10 - Essential (primary) hypertension Category: Medical Plan: BP is markedly elevated. She reports BP is high when she visits MD office. Asked her to record BP at home and bring in two weeks worth reading (3) Diabetes: Code(s): E11.9 - Type 2 diabetes mellitus without complications Category: Medical Plan: Fasting bw has been ordered. Will call with results. Plan History of Present Illness - The patient is an 85-year-old female presenting with hearing loss and diabetes mellitus management. 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 - She uses hearing aids, which have become less effective over time. - Diabetes mellitus: The patient reports a recent blood glucose level of 186 mg/dL. - Preventative care: The patient is scheduled for a mammogram, colonoscopy, and osteoporosis screening. Social History - The patient speaks Bangladeshi and emigrated from [facility]. Review of Systems - Auditory: Reports hearing loss in one ear due to nerve damage and chronic otitis media in the other ear. - Endocrine: Reports elevated blood glucose levels, with a recent reading of 186 mg/dL. - General: Denies need for medication refills at this time. Physical Exam General: Cooperative and healthy appearing Nutritional Appearance: Well nourished Orientation/consciousness: Patient oriented x3 Limitations: No limitations Head: Normal to inspection General: Appearance normal, both eyes and all related structures Neck: Normal visual inspection Chest: Normal palpation of entire chest wall Respiratory: N ormal respiratory effort Neurology: Patient oriented x3, history of elevated families, denies frequent history of alcohol drinking, abdominal no pain. Results - Labs: A1c level pending Plan 1. Hearing Loss - Evaluate current hearing aids and consider new aids if necessary. - Referral to an bus driver for further assessment if needed. 2. Diabetes Mellitus - Continue blood glucose monitoring, with recent reading of 186 mg/dL noted. - Consider adjustments to medication regimen based on blood glucose levels. Discussion Notes During the visit, we discussed the patient's hearing loss and the potential need for new hearing aids. We also reviewed her diabetes management, noting a recent blood glucose level of 186 mg/dL, and considered medication adjustments. Preventative care measures, including scheduling a mammogram, colonoscopy, and osteoporosis screening, were also addressed. Patient Instructions - Continue monitoring blood glucose levels daily. - Attend scheduled appointments for mammogram, colonoscopy, and osteoporosis screening. - Consider visiting an bus driver for further evaluation of hearing loss. Orders: Orders Liver Panel Today E11.9 - Type 2 diabetes mellitus without complications, H91.93 - Unspecified hearing loss, bilateral, I10 - Essential (primary) hypertension Thyroid Stimulating Hormone Today E11.9 - Type 2 diabetes mellitus without complications, H91.93 - Unspecified hearing loss, bilateral, I10 - Essential (primary) hypertension Microalbumin, Random (w Creat) Today E11.9 - Type 2 diabetes mellitus without complications, H91.93 - Unspecified hearing loss, bilateral, I10 - Essential (primary) hypertension Hemoglobin A1c Today E11.9 - Type 2 diabetes mellitus without complications, H91.93 - Unspecified hearing loss, bilateral, I10 - Essential (primary) hypertension Basic Metabolic Panel Today E11.9 - Type 2 diabetes mellitus without complications, H91.93 - Unspecified hearing loss, bilateral, I10 - Essential (primary) hypertension Complete Blood Count no Diff Today E11.9 - Type 2 diabetes mellitus without complications, H91.93 - Unspecified hearing loss, bilateral, I10 - Essential (primary) hypertension Lipid Panel Today E11.9 - Type 2 diabetes mellitus without complications, H91.93 - Unspecified hearing loss, bilateral, I10 - Essential (primary) hypertension UA and rflx microscopic Today E11.9 - Type 2 diabetes mellitus without complications, H91.93 - Unspecified hearing loss, bilateral, I10 - Essential (primary) hypertension
== END 2025-05-25 10:10 | disposition home or self-care (01) ==
LOC: HO.HMCSH 09:18
PROVIDERS: PCP Internal Medicine; Visit Provider Internal Medicine
DX: H91.93 Unspecified hearing loss, bilateral (principal); I10 Essential (primary) hypertension; E11.9 Type 2 diabetes mellitus without complications; Z00.00 Encounter for general adult medical examination without abnormal findings

== ENCOUNTER → 2025-05-25 09:18 | Outpatient (BNVA) | payer MEDICARE, SELFPAY | PROVIDERS: PCP Internal Medicine; Visit Provider Internal Medicine | DX: I10 Essential (primary) hypertension (principal); H91.93 Unspecified hearing loss, bilateral; E11.9 Type 2 diabetes mellitus without complications | CPT/HCPCS: 96127; 99202 ==

== ENCOUNTER 2025-05-31 08:14 | Outpatient (REF) | payer MEDICARE, SELFPAY ==
[2025-05-31 11:02] LABS: Hematocrit 36.2 % (37.0-47.0); Hemoglobin 12.0 g/dl (12.0-16.0); Mean Corpuscular HGB Conc 33.1 g/dl (31.0-35.0); Mean Corpuscular Hemoglobin 28.8 pg (27.0-33.0); Mean Corpuscular Volume 86.8 fL (80.0-98.0); NRBC Abs Auto 0.000 X10*3/uL (0.0-0.012); NRBC Pct Auto 0.0 /100WBC (0.0-0.2); Platelet Count 284 X10*3/uL (160-400); Red Blood Count 4.17 X10*6/uL (4.20-5.50); White Blood Count 6.7 X10*3/uL (4.8-10.8)
[2025-05-31 11:03] LABS: Hemoglobin A1C 240.1192 umol/L; Total Hemoglobin (HGBA1C) 3239.9124 umol/L
[2025-05-31 11:37] LABS: Appearance Urine Clear; Glucose Urine UA Negative (Negative); PH 8.5 (5.0-9.0); Specific Gravity - Urine 1.010 (1.005-1.025); UMIC TRIGGER UA YES
[2025-05-31 12:09] LABS: Thyroid Stimulating Hormone 2.42 uIU/mL (0.32-4.0)
[2025-05-31 12:44] LABS: Anion Gap 14 (12-20)
[2025-05-31 12:48] LABS: Alanine Aminotransferase 17 U/L (0-31); Albumin Level 4.2 g/dL (3.5-5.0); Alkaline Phosphatase 63 U/L (39-117); Aspartate Amino Transferase 21 U/L (5-31); Blood Urea Nitrogen 15 mg/dL (9-16); Calcium 9.6 mg/dL (8.4-10.2); Carbon Dioxide 24 mmol/L (22-29); Chloride 103 mmol/L (96-108); Cholesterol 234 mg/dL (<200); Estimated Glomerular Filt Rate > 60; HDL Cholesterol 78 mg/dL (>40); Potassium 4.3 mmol/L (3.3-5.1); Sodium 137 mmol/L (135-145); Total Protein 7.3 g/dL (6.5-8.0); Triglycerides 149 mg/dL (<150)
[2025-05-31 14:55] LABS: Microalbum/Creatinine Ratio Ur 121.7 ug/mg cr (<30)
== END 2025-05-31 08:15 | disposition home or self-care (01) ==
LOC: HO.HMGCLDS 08:14
PROVIDERS: PCP Internal Medicine; Visit Provider Internal Medicine
DX: E11.9 Type 2 diabetes mellitus without complications (principal); H91.93 Unspecified hearing loss, bilateral; I10 Essential (primary) hypertension
CPT/HCPCS: 36415; 80048; 80061; 80076; 81001; 82043; 82570; 83036; 84443; 85027

== ENCOUNTER 2025-06-08 10:37 | Outpatient (AMB) | payer MEDICARE, SELFPAY ==
--- NOTE | 2025-06-08 10:33 | MHC.PC.OV ---
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 Accompanied by: Spouse Allergies codeine (Codeine) Allergy (Unknown, Verified 06/08/25 13:09) UNKNOWN NARCOTICS Allergy (Unknown, Uncoded 06/08/25 13:09) UNKNOWN Tobacco use date assessed: 05/25/25 Fall risk assessment: No Falls in past year Last assessed Fall Risk: 05/25/25 Dental Screening Dental Screen Date: 05/25/25 Did you have a dental visit in the last 12 months?: Yes Did you have a dental problem in the last 6 months where you did not have access to dental care?: No Was dental information given to patient?: Patient has dentist HPI Elevated BS HPI Details 85-year-old female wishes to discuss her medical health via tele health. Patient has increased her metformin to 2.5 g a day. Her fasting blood sugars are less than 100 and patient reports no symptoms. She is not checking postprandial blood sugars. [facility] Medical History Decreased hearing of both ears Frequent UTI Ruptured ear drum Hypertension Diabetes Surgical History History of colonoscopy (~12/31/13) H/O: hysterectomy Family History Mother Uterine cancer Father Cancer Social History Housing: House Alcohol intake: current Alcohol intake frequency: does not drink Patient Tobacco Use Status: Never used Tobacco service: No Current occupational status: retired Cognitive needs: No Hearing needs: Yes (right ear hearing aid) Vision needs: Yes (rx glasses) Questionnaire PHQ-9 Over the last 2 weeks, how often have you been bothered by any of the following problems? 1. Little interest or pleasure in doing things: not at all 2. Feeling down, depressed, or hopeless: not at all 3. Trouble falling or staying asleep, or sleeping too much: not at all 4. Feeling tired or having little energy: not at all 5. Poor appetite or overeating: not at all 6. Feeling bad about yourself - or that you are a failure or have let yourself or your family down: not at all 7. Trouble concentrating on things, such as reading the newspaper or watching television: not at all 8. Moving or speaking so slowly that other people could have noticed. Or the opposite - being so fidgety or restless that you have been moving around a lot more than usual: not at all 9. Thoughts that you would be better off or of hurting yourself in some way: not at all Total score: 0 Source: Developed by Drs. Say Fernandez, Martina Velez, Chi Lorenzo and colleagues, with an educational emely from [employer]. Thrive Questionnaire Date Thrive assessed: 05/25/25 I am a: Patient What is your living situation today?: I have a steady place to live Within the past 12 months, did the food you bought not last and you didn't have the money to get more?: Never true Within the past 12 months, did you worry whether your food would run out before you got money to buy more?: Never true Do you have trouble paying for medicines?: No Do you have trouble getting transportation to medical appointments?: No Do you have trouble paying your heating and electricity bill?: No Do you have trouble taking care of your child, family member or friend?: No Do you have trouble with day-to-day activities such as bathing, preparing meals, shopping, managing finances, etc.?: No Are you currently unemployed and looking for a job?: No Are you interested in more education?: No Please select the resources that you would like help with: None THRIVE Score: 0 AUDIT C Alcohol Use Questionnaire (AUDIT-C) 1. How often do you have a drink containing alcohol?: Never 3. How often do you have six or more drinks on one occasion?: Never Total Score: 0 GRADY-7 AMB Questionnaire GRADY-7 Date GRADY - 7 assessed: 05/25/25 Feeling nervous, anxious, or on edge: 0 = Not at all Not being able to stop or control worryin = Not at all Worrying too much about different things: 0 = Not at all Trouble relaxin = Not at all Being so restless that it is hard to sit still: 0 = Not at all Becoming easily annoyed or irritable: 0 = Not at all Feeling afraid as if something awful might happen: 0 = Not at all Total GRADY-7 score (0-4 normal; 5-9 mild; 10-14 moderate; 15-21 severe): 0 Source: Developed by Drs. Say Fernandez, Martina Velez, Chi Lorenzo and colleagues, with an educational emely from [employer]. Physical exam (Primary Care) Tobacco/Smoking Status: Tobacco use Status Tobacco use date assessed 05/25/25 06/08/25 10:37 Patient Tobacco Use Status Never used Tobacco 06/08/25 10:37 PHQ-9: PHQ-9 Score PHQ-9: Total score 0 06/08/25 10:37 Thrive Assessment: Date of Thrive Assessment Date Thrive assessed 05/25/25 06/08/25 10:37 Telehealth Telehealth Telehealth Platform: Telephone Location of provider rendering services: practice address Location of patient: address on file Patient Identification confirmed using: Name, : Yes Telehealth method: voice only Patient verbally consented to treatment: Yes Patient verbally consented to billing insurance company: Yes Patient informed of any privacy concerns related to visit: Yes Minutes spent on Phone/Video with Pt.: 15 Coding Level of Care Code Tele Est Pt Level 4 (52130) Complex EM visit Add On G2211 Diagnoses Diabetes E11.9 Assessment & Plan Assessment & Plan (1) Diabetes: Code(s): E11.9 - Type 2 diabetes mellitus without complications Category: Medical Plan: Explained to the patient that the metformin is slightly above the standard dose. Patient is unwilling to try other meds for now. Advised her to check blood sugars and will discuss in 2 weeks. Medications: New metformin 1,000 mg PO TID 270 tabs 0RF
== END 2025-06-08 11:57 | disposition home or self-care (01) ==
LOC: HO.HMCSH 10:37
PROVIDERS: PCP Internal Medicine; Visit Provider Internal Medicine
DX: E11.9 Type 2 diabetes mellitus without complications (principal)

== ENCOUNTER 2025-06-29 10:44 | Outpatient (AMB) | payer MEDICARE, SELFPAY ==
--- NOTE | 2025-06-29 10:38 | A.OFFPC_ITS ---
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 Allergies codeine (Codeine) Allergy (Unknown, Verified 06/29/25 10:38) UNKNOWN NARCOTICS Allergy (Unknown, Uncoded 06/29/25 10:38) UNKNOWN Tobacco use date assessed: 05/25/25 Dental Screening Dental Screen Date: 05/25/25 [facility] Medical History Decreased hearing of both ears Frequent UTI Ruptured ear drum Hypertension Diabetes Surgical History History of colonoscopy (~12/31/13) H/O: hysterectomy Family History Mother Uterine cancer Father Cancer Social History Housing: House Alcohol intake: current Alcohol intake frequency: does not drink Patient Tobacco Use Status: Never used Tobacco service: No Current occupational status: retired Cognitive needs: No Hearing needs: Yes (right ear hearing aid) Vision needs: Yes (rx glasses) Questionnaire PHQ-9 Over the last 2 weeks, how often have you been bothered by any of the following problems? 1. Little interest or pleasure in doing things: not at all 2. Feeling down, depressed, or hopeless: not at all 3. Trouble falling or staying asleep, or sleeping too much: not at all 4. Feeling tired or having little energy: not at all 5. Poor appetite or overeating: not at all 6. Feeling bad about yourself - or that you are a failure or have let yourself or your family down: not at all 7. Trouble concentrating on things, such as reading the newspaper or watching television: not at all 8. Moving or speaking so slowly that other people could have noticed. Or the opposite - being so fidgety or restless that you have been moving around a lot more than usual: not at all 9. Thoughts that you would be better off or of hurting yourself in some way: not at all Total score: 0 Source: Developed by Drs. Say Fernandez, Martina Velez, Chi Lorenzo and colleagues, with an educational emely from [employer]. Thrive Questionnaire Date Thrive assessed: 06/08/25 I am a: Patient What is your living situation today?: I have a steady place to live Within the past 12 months, did the food you bought not last and you didn't have the money to get more?: Never true Within the past 12 months, did you worry whether your food would run out before you got money to buy more?: Never true Do you have trouble paying for medicines?: No Do you have trouble getting transportation to medical appointments?: No Do you have trouble paying your heating and electricity bill?: No Do you have trouble taking care of your child, family member or friend?: No Do you have trouble with day-to-day activities such as bathing, preparing meals, shopping, managing finances, etc.?: No Are you currently unemployed and looking for a job?: No Are you interested in more education?: No Please select the resources that you would like help with: None THRIVE Score: 0 AUDIT C Alcohol Use Questionnaire (AUDIT-C) 1. How often do you have a drink containing alcohol?: Never 3. How often do you have six or more drinks on one occasion?: Never Total Score: 0 GRADY-7 AMB Questionnaire GRADY-7 Date GRADY - 7 assessed: 06/08/25 Feeling nervous, anxious, or on edge: 0 = Not at all Not being able to stop or control worryin = Not at all Worrying too much about different things: 0 = Not at all Trouble relaxin = Not at all Being so restless that it is hard to sit still: 0 = Not at all Becoming easily annoyed or irritable: 0 = Not at all Feeling afraid as if something awful might happen: 0 = Not at all Total GRADY-7 score (0-4 normal; 5-9 mild; 10-14 moderate; 15-21 severe): 0 Source: Developed by Drs. Say Fernandez, Martina Velez, hCi Lorenzo and colleagues, with an educational emely from [employer]. Physical exam (Primary Care) Tobacco/Smoking Status: Tobacco use Status Tobacco use date assessed 05/25/25 06/29/25 10:44 Patient Tobacco Use Status Never used Tobacco 06/29/25 10:44 PHQ-9: PHQ-9 Score PHQ-9: Total score 0 06/29/25 10:44 Thrive Assessment: Date of Thrive Assessment Date Thrive assessed 06/08/25 06/29/25 10:44 Telehealth Telehealth Telehealth Platform: Telephone Location of provider rendering services: practice address Location of patient: address on file Patient Identification confirmed using: Name, : Yes Telehealth method: voice only Patient verbally consented to treatment: Yes Patient verbally consented to billing insurance company: Yes Patient informed of any privacy concerns related to visit: Yes Coding Level of Care Code Est Pt Level 4 (20439) Complex EM visit Add On G2211 Diagnoses Diabetes E11.9 Assessment & Plan Assessment & Plan (1) Diabetes: Code(s): E11.9 - Type 2 diabetes mellitus without complications Category: Medical Plan History of Present Illness - The patient is an 85-year-old female presenting with management of Type 2 Diabetes Mellitus. - She reports high blood sugar levels in the afternoon despite taking metformin three times a day. - The patient has been taking an additional 500 mg dose by cutting a 1000 mg tablet in half due to lack of prescription for the smaller dose. - The physician recommended reducing the metformin dose to 2000 mg per day, as this is the maximum recommended dose. - Jardiance was previously suggested but is unaffordable, and there has been no change in insurance coverage to assist with this cost. - Trulicity was proposed as an alternative, with the cost to be determined upon prescription fill. - If Trulicity is not affordable, pioglitazone will be considered as an alternative. Social History Review of Systems Physical Exam General: Cooperative and healthy appearing Nutritional Appearance: Well nourished Orientation/consciousness: Patient oriented x3 Limitations: No limitations Head: Normal to inspection General: Appearance normal, both eyes and all related structures Neck: Normal visual inspection Chest: Normal palpation of entire chest wall Respiratory: Normal respiratory effort Neurology: Patient oriented x3 Results Plan 1. Type 2 Diabetes Mellitus - Reduce metformin dosage to 2000 mg per day as the maximum recommended dose. - Consider starting Trulicity, an injectable medication, if insurance covers it; otherwise, consider pioglitazone as an alternative. - Jardiance was previously considered but is unaffordable due to high cost and lack of insurance coverage. Discussion Notes During the visit, I discussed with the patient the need to reduce her metformin dosage to 2000 mg per day, as this is the maximum recommended dose. I proposed starting Trulicity, an injectable medication, if her insurance covers it, and explained that if it is not affordable, pioglitazone could be considered as an alternative. We also reviewed that Jardiance was previously considered but is unaffordable due to its high cost and lack of insurance coverage. Patient Instructions - Reduce metformin intake to 2000 mg per day. - Check with the pharmacy if Trulicity is covered by insurance before picking it up. - Contact the doctor if Trulicity is not affordable to discuss alternative options. Medications: New dulaglutide (Trulicity) 1.5 mg (0.5 mL) subcut QWEEK 2 mL 1RF
== END 2025-06-29 11:56 | disposition home or self-care (01) ==
LOC: HO.HMCSH 10:44
PROVIDERS: PCP Internal Medicine; Visit Provider Internal Medicine
DX: E11.9 Type 2 diabetes mellitus without complications (principal)

== ENCOUNTER → 2025-06-29 10:44 | Outpatient (BNVA) | payer MEDICARE, SELFPAY | PROVIDERS: PCP Internal Medicine; Visit Provider Internal Medicine | DX: E11.9 Type 2 diabetes mellitus without complications (principal); Z51.81 Encounter for therapeutic drug level monitoring; Z79.84 Long term (current) use of oral hypoglycemic drugs | CPT/HCPCS: 99212 ==

== ENCOUNTER 2025-09-14 09:40 | Outpatient (AMB) | payer MEDICARE, SELFPAY ==
[2025-09-14 09:47] VITALS: BP 241/107; PULSE 84; TEMP 36.8; O2SAT 99; BMI 26.9
--- NOTE | 2025-09-14 09:47 | A.OFFPC_ITS ---
Vital Signs 09/14/25 09:47 Height 5 ft 1.61 in Weight 145 lb 2 oz BMI 26.9 BP 241/107 H Blood Pressure Location Rt brachial Position Sitting Pulse 84 Pulse Source Pulse Oximeter Temp 98.3 F Temp Source Temporal Artery Scan Pulse Oximetry (%) 99 Oxygen Delivery Method Room Air Intake Visit Reasons: 3 month f/u [employer] Specialist Required: No Accompanied by: Spouse Allergies codeine (Codeine) Allergy (Unknown, Verified 09/14/25 09:47) UNKNOWN NARCOTICS Allergy (Unknown, Uncoded 06/29/25 10:38) UNKNOWN Tobacco use date assessed: 09/14/25 Fall risk assessment: No Falls in past year Last assessed Fall Risk: 09/14/25 Dental Screening Dental Screen Date: 09/14/25 Did you have a dental visit in the last 12 months?: Yes Was dental information given to patient?: Patient has dentist [facility] Medical History Decreased hearing of both ears Frequent UTI Ruptured ear drum Hypertension Diabetes Surgical History History of colonoscopy (~12/31/13) H/O: hysterectomy Family History Mother Uterine cancer Father Cancer Social History Housing: House Alcohol intake: current Alcohol intake frequency: does not drink Patient Tobacco Use Status: Never used Tobacco service: No Current occupational status: retired Cognitive needs: No Hearing needs: Yes (right ear hearing aid) Vision needs: Yes (rx glasses) Questionnaire PHQ-9 Over the last 2 weeks, how often have you been bothered by any of the following problems? 1. Little interest or pleasure in doing things: not at all 2. Feeling down, depressed, or hopeless: not at all 3. Trouble falling or staying asleep, or sleeping too much: not at all 4. Feeling tired or having little energy: not at all 5. Poor appetite or overeating: not at all 6. Feeling bad about yourself - or that you are a failure or have let yourself or your family down: not at all 7. Trouble concentrating on things, such as reading the newspaper or watching television: not at all 8. Moving or speaking so slowly that other people could have noticed. Or the opposite - being so fidgety or restless that you have been moving around a lot more than usual: not at all 9. Thoughts that you would be better off or of hurting yourself in some way: not at all Total score: 0 Source: Developed by Drs. Say Fernnadez, Maritna Velez, Chi Lorenzo and colleagues, with an educational emely from [email or web address]. Thrive Questionnaire Date Thrive assessed: 09/14/25 I am a: Patient What is your living situation today?: I have a steady place to live Within the past 12 months, did the food you bought not last and you didn't have the money to get more?: Never true Within the past 12 months, did you worry whether your food would run out before you got money to buy more?: Never true Do you have trouble paying for medicines?: No Do you have trouble getting transportation to medical appointments?: No Do you have trouble paying your heating and electricity bill?: No Do you have trouble taking care of your child, family member or friend?: No Do you have trouble with day-to-day activities such as bathing, preparing meals, shopping, managing finances, etc.?: No Are you currently unemployed and looking for a job?: No Are you interested in more education?: No Please select the resources that you would like help with: None THRIVE Score: 0 AUDIT C Alcohol Use Questionnaire (AUDIT-C) 1. How often do you have a drink containing alcohol?: Never 3. How often do you have six or more drinks on one occasion?: Never Total Score: 0 GRADY-7 AMB Questionnaire GRADY-7 Date GRADY - 7 assessed: 09/14/25 Feeling nervous, anxious, or on edge: 0 = Not at all Not being able to stop or control worryin = Not at all Worrying too much about different things: 0 = Not at all Trouble relaxin = Not at all Being so restless that it is hard to sit still: 0 = Not at all Becoming easily annoyed or irritable: 0 = Not at all Feeling afraid as if something awful might happen: 0 = Not at all Total GRADY-7 score (0-4 normal; 5-9 mild; 10-14 moderate; 15-21 severe): 0 Source: Developed by Drs. Say Fernandez, Martina Velez, Chi Lorenzo and colleagues, with an educational emely from [email or web address]. Physical exam (Primary Care) Vital Signs: Last Vital Signs Temp 98.3 F 09/14/25 09:47 Pulse 84 09/14/25 09:47 BP 241/107 H 09/14/25 09:47 Pulse Ox 99 09/14/25 09:47 Oxygen Delivery Method Room Air 09/14/25 09:47 BMI result Body Mass Index 26.9 Tobacco/Smoking Status: Tobacco use Status Tobacco use date assessed 09/14/25 09/14/25 10:01 Patient Tobacco Use Status Never used Tobacco 09/14/25 10:01 PHQ-9: PHQ-9 Score PHQ-9: Total score 0 09/14/25 10:01 Thrive Assessment: Date of Thrive Assessment Date Thrive assessed 09/14/25 09/14/25 10:01 Office Procedures Flu Questionnaire Does the patient have a severe egg allergy?: No Does the patient have severe life threatening allergies?: No Does the patient have a fever or illness today?: No Has the patient ever had Guillain-Vanderbilt Syndrome?: No Has the patient ever had any past reaction to a flu shot?: No Results AMB Hemoglobin A1c AMB Hemoglobin A1c 9.0 % Last Edit by Randi Huerta CMA on 09/14/25 10:3 3 Immunizations Fluarix [id number] (PF) 45 mcg (15 mcg x 3)/0.5 mL IM syringe Performing Provider: Hung Gimenez MD [place] [facility] Documented (not given) by: Randi Huerta CMA on 09/14/25 10:01 Reason Not Given: Patient Refused Coding Assessment & Plan Assessment & Plan Orders: Orders Influenza [id number] Immunization Today Z23 - Encounter for immunization AMB Hemoglobin A1c Today Z13.9 - Encounter for screening, unspecified
== END 2025-09-14 10:46 | disposition home or self-care (01) ==
LOC: HO.HMCSH 09:40
PROVIDERS: PCP Internal Medicine; Visit Provider Internal Medicine
DX: Z23 Encounter for immunization (principal); Z13.9 Encounter for screening, unspecified

== ENCOUNTER → 2025-09-14 09:40 | Outpatient (BNVA) | payer MEDICARE, SELFPAY | PROVIDERS: PCP Internal Medicine; Visit Provider Internal Medicine | DX: E11.9 Type 2 diabetes mellitus without complications (principal); Z13.30 Encounter for screening examination for mental health and behavioral disorders, unspecified; Z13.39 Encounter for screening examination for other mental health and behavioral disorders | CPT/HCPCS: 83036; 90471; 96127; 99212 ==